=== PATIENT | male | born 1975 | race Hispanic/Latino ===

== ENCOUNTER 2017-06-11 07:00 | Day surgery (SDC) | payer OTHER ==
[~2017-06-11] VITALS: Ht 175.3 cm; Wt 151.2 kg
[~2017-06-11 07:00] MED LIST: GABA-531 PO; LISI-613 PO; LORA1TAB3 PO; PANT40TA25 PO; SODIUM CHLORIDE 0.9% 1000ML 1,000 ML IV ONE
[2017-06-11 07:30] VITALS: BP 148/74
[2017-06-11] MEDS ORDERED: FENTANYL CITRATE PF 50 MCG/1 ML 2ML VIAL ONE (08:33)
[2017-06-11] MEDS ORDERED: PROPOFOL 10 MG/ML 20ML VIAL IV ONE ×3 (08:33→08:46)
[2017-06-11 09:05] VITALS: BP 79/29
== END 2017-06-11 09:46 ==
LOC: DAH 07:00
PROVIDERS: ATTEND Internal Medicine Gastroenterology
DX: K92.1 Melena (principal); K21.9 Gastro-esophageal reflux disease without esophagitis; Z68.44 Body mass index [BMI] 60.0-69.9, adult; G47.33 Obstructive sleep apnea (adult) (pediatric); I10 Essential (primary) hypertension; J18.9 Pneumonia, unspecified organism; Z98.890 Other specified postprocedural states; Z79.899 Other long term (current) drug therapy; Z83.71 Family history of colonic polyps
CPT/HCPCS: 43235; 45378; A4606; J2704 ×3; J3010; J7030

== ENCOUNTER 2018-04-05 15:50 | Emergency (ER) | payer OTHER ==
[~2018-04-05 15:50] MED LIST changes: -SODIUM CHLORIDE 0.9% 1000ML 1,000 ML IV ONE
[2018-04-05 16:35] LABS: BASOPHILS % (AUTO) 0.6 % (0.0-5.0); EOSINOPHILS % (AUTO) 0.2 % (0.0-8.0); HEMATOCRIT 44.1 % (42-54); LYMPHOCYTES % (AUTO) 18.6 % (21.0-51.0); MEAN CORPUSCULAR HEMOGLOBIN 31.2 pg (27.0-33.0); MEAN CORPUSCULAR HGB CONC 34.4 g/dL (32.0-36.0); MEAN CORPUSCULAR VOLUME 90.6 fL (79-99); MONOCYTES % (AUTO) 9.2 % (3.0-13.0); NEUTROPHILS % (AUTO) 71.4 % (40.0-77.0); NUCLEATED RED BLOOD CELLS 0.1 % (0.0-0.19); PLATELET COUNT (AUTO) 342 K/uL (130-400); RED BLOOD CELL COUNT(AUTO) 4.87 MIL/uL (4.50-6.20); RED CELL DISTRIBUTION WIDTH 12.7 % (11.0-15.5); WHITE BLOOD COUNT (AUTO) 11.1 K/uL (4.8-10.8)
[2018-04-05 16:44] LABS: CREATININE 1.2 mg/dL (0.5-1.5); POTASSIUM 3.4 mmol/L (3.5-5.1)
[2018-04-05 16:48] LABS: ALBUMIN 3.7 g/dL (3.5-5.0); BILIRUBIN,TOTAL 0.9 mg/dL (0.2-1.0); TOTAL PROTEIN, SERUM 8.3 g/dL (6.0-8.3)
[2018-04-05 17:55] LABS: APPEARANCE,URINE Clear (CLEAR); BILIRUBIN,URINE Small (NEGATIVE); COLOR,URINE Dark Yellow (YELLOW); GLUCOSE, URINE (UA) Negative (NEGATIVE); KETONES,URINE Trace mg/dL (NEGATIVE); LEUKOCYTE ESTERASE ,URINE Negative (NEGATIVE); NITRATE,URINE Negative (NEGATIVE); OCCULT BLOOD,URINE Nonhemolyzed Trace (NEGATIVE); PROTEIN,URINE POS 1+ (NEGATIVE)
[2018-04-05 18:11] LABS: BACTERIA,URINE Few /HPF (None Seen); MUCUS,URINE Few LPF (None Seen); RBC,URINE 0-1 /HPF (0-1); SQUAMOUS EPITHELIAL CELL,UR Few /HPF (0-2); TRANSITIONAL EPI CELLS,URINE Few /HPF (None Seen); WBC,URINE 0-1 /HPF (0-1)
[2018-04-05] MEDS ORDERED: IBUPROFEN 800 MG TAB ONE (18:34)
== END 2018-04-05 19:06 | disposition home or self-care (01) ==
LOC: EDH 15:50
DX: R10.11 Right upper quadrant pain (principal); R10.12 Left upper quadrant pain; M79.18 Myalgia, other site; F32.9 Major depressive disorder, single episode, unspecified; F41.9 Anxiety disorder, unspecified; I10 Essential (primary) hypertension; F12.90 Cannabis use, unspecified, uncomplicated
CPT/HCPCS: 36415; 76705; 80053; 81001; 83690; 85025

== ENCOUNTER 2018-10-05 01:55 | Emergency (ER) | payer OTHER | END 2018-10-05 05:08 | disposition home or self-care (01) | LOC: EDH 01:55 | DX: R07.89 Other chest pain (principal); M62.830 Muscle spasm of back; I10 Essential (primary) hypertension; F12.90 Cannabis use, unspecified, uncomplicated; F41.9 Anxiety disorder, unspecified | CPT/HCPCS: 71046; 93005 ==

== ENCOUNTER 2021-09-25 08:30 | Emergency (ER) | payer MEDICAID ==
[~2021-09-25] VITALS: Ht 180.3 cm; Wt 102.1 kg
[~2021-09-25 08:30] MED LIST changes: -LISI-613 PO; +LISI20TA24 PO; -PANT40TA25 PO; +PANT40TA54 PO
[2021-09-25 08:50] LABS: BASOPHILS % (AUTO) 0.4 % (0.0-5.0); EOSINOPHILS % (AUTO) 0.9 % (0.0-8.0); HEMATOCRIT 45.8 % (42-54); LYMPHOCYTES % (AUTO) 22.4 % (21.0-51.0); MEAN CORPUSCULAR HEMOGLOBIN 30.7 pg (27.0-33.0); MEAN CORPUSCULAR HGB CONC 33.4 g/dL (32.0-36.0); MONOCYTES % (AUTO) 6.6 % (3.0-13.0); NEUTROPHILS % (AUTO) 69.5 % (40.0-77.0); PLATELET COUNT (AUTO) 278 K/uL (130-400); RED BLOOD CELL COUNT(AUTO) 4.98 MIL/uL (4.50-6.20); RED CELL DISTRIBUTION WIDTH 12.4 % (11.0-15.5); WHITE BLOOD COUNT (AUTO) 9.8 K/uL (4.8-10.8)
[2021-09-25] MEDS ORDERED: PANTOPRAZOLE 40 MG/VIAL IVP ONE (09:00)
[2021-09-25 09:03] LABS: CREATININE 0.9 mg/dL (0.5-1.5); POTASSIUM 3.9 mmol/L (3.5-5.1)
[2021-09-25 09:09] LABS: BILIRUBIN,TOTAL 0.7 mg/dL (0.2-1.0); TOTAL PROTEIN, SERUM 7.8 g/dL (6.0-8.3)
[2021-09-25 09:18] LABS: B-TYPE NATRIURETIC PEPTIDE 9 pg/mL (0-100)
[2021-09-25 09:33] LABS: AMPHET/METH SCREEN,URINE NEGATIVE (NEGATIVE); BARBITURATE SCREEN, URINE NEGATIVE (NEGATIVE); BENZODIAZEPINES SCREEN,URINE NEGATIVE (NEGATIVE); CANNABINOID SCREEN,URINE POSITIVE (NEGATIVE); COCAINE SCREEN,URINE NEGATIVE (NEGATIVE); OPIATE SCREEN,URINE NEGATIVE (NEGATIVE); PHENCYCLIDINE SCREEN,URINE NEGATIVE (NEGATIVE)
[2021-09-25] MEDS ORDERED: MAG/ALUM/SIMETH 30 ML UDCUP PO ONE (10:00)
[2021-09-25] MEDS ORDERED: DICYCLOMINE HCL 10 MG/5 ML ML PO ONE (10:00)
[2021-09-25] MEDS ORDERED: LIDOCAINE HCL 2% VISCOUS 15 ML UDCUP PO ONE (10:00)
[2021-09-25 10:46] VITALS: BP 131/74
[2021-09-25] MEDS ORDERED: FAMO20TA8 PO (10:55)
[2021-09-25] MEDS ORDERED: NAPR-1196 PO (10:55)
== END 2021-09-25 11:04 | disposition home or self-care (01) ==
LOC: EDH 08:30
DX: M94.0 Chondrocostal junction syndrome [Tietze] (principal); K21.9 Gastro-esophageal reflux disease without esophagitis; Z79.899 Other long term (current) drug therapy
CPT/HCPCS: 36415; 71045; 80053; 80305; 83880; 84484; 85025; 93005; 96374; 99285; S0164; C9113